=== PATIENT | male | born 1990 | race African-American/Black ===

== ENCOUNTER 2021-03-16 01:05 | Emergency (ER) | payer OTHER ==
[~2021-03-16] VITALS: Ht 185.4 cm; Wt 91.0 kg
[2021-03-16 01:12] VITALS: BP 144/88
[2021-03-16] MEDS ORDERED: MAGNESIUM/ALUMINUM HYDROXIDE/SIMETHICONE 30ML UDC PO STA (01:29)
[2021-03-16] MEDS ORDERED: VISCOUS LIDOCAINE 2% 15 ML UDC PO STA (01:29)
[2021-03-16] MEDS ORDERED: ONDANSETRON 4MG ODT PO STA (01:29)
[2021-03-16] MEDS ORDERED: HALOPERIDOL LACTATE 5MG/ML VIAL IM ONE (01:30)
[2021-03-16 03:53] LABS: BASOPHILS % 0.6 % (0.0-2.0); EOSINOPHILS % 0.8 % (0.0-5.0); HEMATOCRIT. 49.4 % (42.0-52.0); HEMOGLOBIN. 16.7 g/dL (14.0-18.0); MEAN CORPUSCULAR HEMOGLOBIN 31.9 pg (28.0-32.0); MEAN CORPUSCULAR VOLUME 94.4 fL (80.0-94.0); MEAN PLATELET VOLUME 9.1 fl (7.4-10.4); NEUTROPHILS % 76.6 % (40.0-76.0); PLATELET 247 x1000/uL (130-400); RED BLOOD CELL COUNT 5.23 mill/uL (4.7-6.1); RED CELL DISTRIBUTION WIDTH 14.4 % (11.6-14.6)
[2021-03-16 03:54] LABS: CHLORIDE 103 mEq/L (98-107); ETHANOL BLOOD < 10 mg/dL
== END 2021-03-16 03:20 | disposition left against medical advice (07) ==
LOC: ER 01:05
DX: F12.188 Cannabis abuse with other cannabis-induced disorder (principal); Z87.891 Personal history of nicotine dependence
CPT/HCPCS: 36415; 80053; 80320; 83690; 85025; 96372; 99284; J1630; Q0162; G0480

== ENCOUNTER 2023-03-04 13:56 | Emergency (ER) | payer MEDICAID, OTHER ==
[~2023-03-04] VITALS: Ht 182.9 cm; Wt 84.0 kg
[2023-03-04 13:58] VITALS: O2SAT 97
[2023-03-04] MEDS ORDERED: HYDROCODONE/ACETAMINOPHEN 5/325MG TABLET PO STA (14:35)
[2023-03-04] MEDS ORDERED: HYDR-4001 MT ×2 (14:44→14:50)
[2023-03-04 15:23] VITALS: BP 140/89; PULSE 88; RESP 16; TEMP 98.1
== END 2023-03-04 15:24 | disposition home or self-care (01) ==
LOC: ER 13:56
DX: M79.605 Pain in left leg (principal); F12.10 Cannabis abuse, uncomplicated
CPT/HCPCS: 99283

== ENCOUNTER 2024-09-22 17:29 | Emergency (ER) | payer OTHER ==
[~2024-09-22] VITALS: Ht 188 cm; Wt 86.0 kg
[~2024-09-22 17:29] MED LIST: HYDR-4001 MT
[2024-09-22 17:34] VITALS: O2SAT 98
[2024-09-22 17:46] VITALS: TEMP 36.8; O2SAT 97
[2024-09-22 20:32] VITALS: BP 107/74; PULSE 83; RESP 18
[2024-09-22] MEDS: KETOROLAC 15MG/ML VIAL IM ONE (20:32)
== END 2024-09-22 20:33 | disposition left against medical advice (07) ==
LOC: ER 17:29
DX: M79.605 Pain in left leg (principal); Z90.49 Acquired absence of other specified parts of digestive tract; Z53.21 Procedure and treatment not carried out due to patient leaving prior to being seen by health care provider
CPT/HCPCS: J1885